=== PATIENT | male | born 1950 | race Caucasian/White ===

== ENCOUNTER → 2018-03-13 | Outpatient (CLI) | payer BC, MEDICARE ==
[2018-03-13 11:27] LABS: ABG BASE EXCESS -1.1 MMOL/L (-2.5-2.5); ABG OXYGEN SATURATION 96 % (94-100); ABG PCO2 36 MMHG (35-45); ABG PH 7.41 (7.37-7.43); ABG PO2 76 MMHG (79-93); ABG TCO2 23.9 MMOL/L (21.0-31.0)
[2018-03-13 11:28] LABS: ALLENS TEST YES-POS; INSPIRED O2 ROOM AIR; PATIENT TEMP 98.3; VENTILATOR NO
--- NOTE | 2018-03-13 12:37 | Diagnostic Imaging Report ---
INDICATION: ALLERGIC RHINITIS, DYSPNEA, EDEMA, HX OF SMOKING COMPARISON: None. FINDINGS: Frontal and lateral views of the chest demonstrate normal heart size and pulmonary vascularity. The lungs are clear. There are no signs of infiltrate, pleural effusions or pneumothoraces. The visualized osseous structures show no acute abnormalities. IMPRESSION: 1. No acute process. No signs of infiltrates, effusions or pneumothoraces. Dictated by: Dictated on workstation # [id number]
== END ==
LOC: LAB 10:37
PROVIDERS: ATTEND Nurse Practitioner Family
DX: J30.9 Allergic rhinitis, unspecified (principal); R06.00 Dyspnea, unspecified; Z87.891 Personal history of nicotine dependence
CPT/HCPCS: 36600; 71046; 82805

== ENCOUNTER → 2018-03-19 | Outpatient (CLI) | payer BC, MEDICARE ==
[~2018-03-19] MED LIST: RT-ALBUTEROL SULF 2.5 MG/3 ML PRE-MIX VIAL INH ONE; RT-ALBUTEROL SULF 2.5 MG/3 ML PRE-MIX VIAL ONE
== END ==
LOC: CARD 13:10
PROVIDERS: ATTEND Nurse Practitioner Family
DX: R06.00 Dyspnea, unspecified (principal); E66.9 Obesity, unspecified; Z87.891 Personal history of nicotine dependence
CPT/HCPCS: 93306

== ENCOUNTER 2018-04-11 13:00 | Outpatient (CLI) | payer BC, MEDICARE | END 2018-04-11 13:18 | disposition home or self-care (01) | LOC: SLEEP 13:00 | PROVIDERS: ATTEND Nurse Practitioner Family | DX: G47.10 Hypersomnia, unspecified (principal) ==

== ENCOUNTER → 2019-09-12 | Outpatient (CLI) | payer BC, MEDICARE | LOC: LAB FS 15:25 | PROVIDERS: ATTEND Ophthalmology | DX: J98.4 Other disorders of lung (principal) ==

== ENCOUNTER 2020-06-22 15:57 | Emergency (ER) | payer BC, MEDICARE ==
[~2020-06-22] VITALS: Ht 177.8 cm; Wt 124.6 kg
[2020-06-22 16:09] VITALS: BP 106/81
[2020-06-22 16:40] LABS: BASOPHILS % (AUTO) 1 % (0-10); EOSINOPHILS % (AUTO) 4 % (0-10); HEMATOCRIT 43 % (40-54); HEMOGLOBIN 14.7 G/DL (13.3-17.7); LYMPHOCYTES # (AUTO) 1.9 X 10^3 (1.0-4.0); LYMPHOCYTES % (AUTO) 24 % (12-44); MEAN CORPUSCULAR HEMOGLOBIN 30 PG (25-34); MEAN CORPUSCULAR HGB CONC 34 G/DL (32-36); MEAN CORPUSCULAR VOLUME 87 FL (80-99); MEAN PLATELET VOLUME 10.3 FL (7.4-10.4); MONOCYTES # (AUTO) 0.8 X 10^3 (0.0-1.0); MONOCYTES % (AUTO) 10 % (0-12); NEUTROPHILS % (AUTO) 61 % (42-75); PLATELET COUNT 202 10^3/uL (130-400); RED CELL DISTRIBUTION WIDTH 13.1 % (10.0-14.5); WHITE BLOOD COUNT 8.1 10^3/uL (4.3-11.0)
[2020-06-22 16:41] LABS: BASOPHILS # (AUTO) 0.1 10^3/uL (0.0-0.1); EOSINOPHILS # (AUTO) 0.4 10^3/uL (0.0-0.3)
--- NOTE | 2020-06-22 16:54 | ED Lower Extremity ---
General Chief Complaint: Lower Extremity Stated Complaint: SWELLING IN LEFT LEG Source: patient Exam Limitations: no limitations History of Present Illness Date Seen by Provider: Jun 22, 2020 Time Seen by Provider: 16:40 Initial Comments 70-year-old male presents from his PCPs clinic where he was seen today for lower extremity edema and intermittent exertional dyspnea. Sent for evaluation for possible DVT of LLE. Patient with chronic lower extremity edema and chronic intermittent shortness of air. States he rarely walks or exerts himself due to his shortness of air and swelling pain in his lower extremities. No SOA at rest. Denies CP or palpitations. Admits he occasionally wears compression hose and they effectively keep the swelling down in his legs. Pt states he has had significant wt gain Allergies and Home Medications Allergies Coded Allergies: No Known Drug Allergies (Unverified , 03/19/18) Patient Home Medication List Home Medication List Reviewed: Yes Review of Systems Constitutional: see HPI; No dizziness, No fever, No malaise, No weakness Respiratory: cough, dyspnea on exertion; No hemoptysis, No orthopnea, No short of breath, No stridor, No wheezing Cardiovascular: chest pain, edema (chronic LE edema); No palpitations Gastrointestinal: No abdominal pain, No constipation, No diarrhea, No loss of appetite, No nausea, No vomiting Musculoskeletal: No back pain, No joint pain, No muscle pain, No neck pain Skin: No change in color, No lesions, No lumps, No rash Psychiatric/Neurological: Numbness (b/l LE's, no pain) Past Muuzvla-Nehpnf-Ufqkgi Hx Past Med/Social Hx: Reviewed Nursing Past Med/Soc Hx Patient Social History Alcohol Use: Past History Recreational Drug Use: No Smoking Status: Former Smoker 2nd Hand Smoke Exposure: No Recent Foreign Travel: No Contact w/Someone Who Travel: No Recent Hopitalizations: No Physical Abuse: No Sexual Abuse: No Mistreated: No Fear: No Seasonal Allergies Seasonal Allergies: No Past Medical History Surgeries: Yes (bilateral knees, rt shoulder) Tonsillectomy Respiratory: No Cardiac: Yes Hypertension Neurological: No Genitourinary: No Gastrointestinal: No Musculoskeletal: No Endocrine: No HEENT: No Cancer: No Psychosocial: No Integumentary: No Blood Disorders: No Physical Exam Vital Signs Vital Signs - First Documented 06/22/20 16:09 Temp 37.2 Pulse 88 Resp 18 B/P (MAP) 106/81 (89) Pulse Ox 96 O2 Delivery Room Air Capillary Refill : Height, Weight, BMI Height: '" Weight: lbs. oz. kg; BMI Method: General Appearance: WD/WN, no apparent distress Neck: non-tender, full range of motion, supple Cardiovascular: regular rate, rhythm, no gallop, no JVD, no murmur, other (symmetrical Non-pitting edema of b/l LE's. No calf tenderness, neg Genesis's/ neg Marti's) Respiratory: chest non-tender, lungs clear, normal breath sounds, no respiratory distress, no accessory muscle use Legs: bilateral leg non-tender, bilateral leg normal inspection, bilateral leg normal range of motion, bilateral leg no evidence of injury Knees: bilateral knee non-tender, bilateral knee normal inspection, bilateral knee normal range of motion, bilateral knee no evidence of injury Ankles: bilateral ankle non-tender, bilateral ankle normal inspection, bilateral ankle normal range of motion, bilateral ankle no evidence of injury Feet: bilateral foot non-tender, bilateral foot normal inspection, bilateral foot normal range of motion, bilateral foot no evidence of injury Neurologic/Tendon: normal sensation, normal motor functions Neurologic/Psychiatric: no motor/sensory deficits, alert, normal mood/affect Progress/Results/Core Measures Results/Orders Lab Results Laboratory Tests Test 06/22/20 16:22 Range/Units White Blood Count 8.1 4.3-11.0 10^3/uL Red Blood Count 4.94 4.35-5.85 10^6/uL Hemoglobin 14.7 13.3-17.7 G/DL Hematocrit 43 40-54 % Mean Corpuscular Volume 87 80-99 FL Mean Corpuscular Hemoglobin 30 25-34 PG Mean Corpuscular Hemoglobin Concent 34 32-36 G/DL Red Cell Distribution Width 13.1 10.0-14.5 % Platelet Count 202 130-400 10^3/uL Mean Platelet Volume 10.3 7.4-10.4 FL Neutrophils (%) (Auto) 61 42-75 % Lymphocytes (%) (Auto) 24 12-44 % Monocytes (%) (Auto) 10 0-12 % Eosinophils (%) (Auto) 4 0-10 % Basophils (%) (Auto) 1 0-10 % Neutrophils # (Auto) 5.0 1.8-7.8 X 10^3 Lymphocytes # (Auto) 1.9 1.0-4.0 X 10^3 Monocytes # (Auto) 0.8 0.0-1.0 X 10^3 Eosinophils # (Auto) 0.4 H 0.0-0.3 10^3/uL Basophils # (Auto) 0.1 0.0-0.1 10^3/uL D-Dimer 0.39 0.00-0.49 UG/ML Pro-B-Type Natriuretic Peptide 58.9 <75.0 PG/ML My Orders Orders - EDGAR LEON DO Cbc With Automated Diff (06/22/20 16:17) Probnp Fs (06/22/20 16:17) Fibrin Degradation Products (06/22/20 16:19) Vital Signs/I&O 06/22/20 16:09 Temp 37.2 Pulse 88 Resp 18 B/P (MAP) 106/81 (89) Pulse Ox 96 O2 Delivery Room Air Initial ECG Impression Date: Jun 22, 2020 Initial ECG Impression Time: 17:00 Initial ECG Rate: 75 Initial ECG Rhythm: Normal Sinus Initial ECG Intervals: Normal Initial ECG Impression: Normal Initial ECG Comparisson: No Previous ECG Available Comment Review of ECG done by PCP in clinic today. no sign of heart strain Departure Impression Primary Impression: Dependent edema Disposition: 01 HOME, SELF-CARE Condition: Stable Departure-Patient Inst. Decision time for Depature: 17:07 Referrals: JORDIN MOHAMUD DO (PCP/Family) Primary Care Physician Patient Instructions: Dependent Edema (DC) Add. Discharge Instructions: Talk to your PCP, Dr Mohamud about seeing a [employer] for help with weight loss. Also discuss starting an exercise program with Dr Mohamud to increase your exercise tolerance. All discharge instructions reviewed with patient and/or family. Voiced understanding. EDGAR LEON DO Jun 22, 2020 16:54
== END 2020-06-22 17:12 | disposition home or self-care (01) ==
LOC: EDUNIT# 15:57 → ER FS 15:58
DX: R60.0 Localized edema (principal); Z87.891 Personal history of nicotine dependence
CPT/HCPCS: 36415; 83880; 85025; 85379; 99283

== ENCOUNTER → 2021-01-13 | Outpatient (CLI) | payer BC, MEDICARE | LOC: LABNPT 05:54 | PROVIDERS: ATTEND Nurse Practitioner Family | DX: Z01.89 Encounter for other specified special examinations (principal); Z20.822 Contact with and (suspected) exposure to COVID-19 | CPT/HCPCS: 87635 ==

== ENCOUNTER 2021-01-15 20:23 | Outpatient (CLI) | payer BC, MEDICARE | END 2021-01-16 07:05 | disposition home or self-care (01) | LOC: SLEEP 20:23 | PROVIDERS: ATTEND Nurse Practitioner Family | DX: G47.33 Obstructive sleep apnea (adult) (pediatric) (principal) | CPT/HCPCS: 95811 ==

== ENCOUNTER → 2021-02-10 | Outpatient (CLI) | payer BC, MEDICARE ==
[~2021-02-10] MED LIST changes: +CATHETER FLUSH 10 ML SYR IV PRN; +HOLD METFORMIN - RECEIVED CONTRAST 20 ML VIAL IV SCH; +IOHEXOL 350 MG/ML 100 ML (OMNIPAQUE 350) VIAL IV ONE; +NS 100 ML (IVPB) BAG IV ONE; -RT-ALBUTEROL SULF 2.5 MG/3 ML PRE-MIX VIAL ONE
[2021-02-10 15:42] LABS: CREATININE SERUM 0.86 MG/DL (0.60-1.30); GFR ESTIMATED > 60
[2021-02-10 15:43] LABS: BUN/CREATININE RATIO 13
--- NOTE | 2021-02-10 17:04 | Diagnostic Imaging Report ---
EXAMINATION: CT Chest with intravenous contrast. TECHNIQUE: Multiple contiguous axial images were obtained through the chest after the uneventful administration of intravenous contrast. All CT scans use one or more of the following dose optimizing techniques: automated exposure control, MA and/or KvP adjustment based on a patient size and exam type, or iterative reconstruction. HISTORY: ASTHMA COMPARISON: None available. FINDINGS: Thyroid: The thyroid is normal. Mediastinum: Heart size is normal without significant pericardial effusion. Calcifications of the aorta and coronary vessels. Thoracic aorta is normal in caliber. There are numerous prominent mediastinal lymph nodes which are not pathologically enlarged but are greater in number than expected. Lungs and airways: There are mild background emphysematous changes of the lungs without consolidation, pleural effusion, or pneumothorax. There is no suspicious pulmonary nodule. The airways are normal. Upper abdomen: There is a cystic lesion within hepatic segment IVb likely hepatic cyst. Musculoskeletal: Degenerative changes of the spine without suspicious osseous lesion or compression fracture. IMPRESSION: 1. No acute abnormality in the chest. 2. Mild emphysema. 3. Multiple prominent mediastinal lymph nodes are not pathologically enlarged but are greater in number than expected. These are indeterminate and may be reactive, although lymphoma could have a similar appearance. Dictated by: Dictated on workstation # [id number]
== END ==
LOC: RT 15:08
PROVIDERS: ATTEND Nurse Practitioner Family
DX: J43.9 Emphysema, unspecified (principal); J45.909 Unspecified asthma, uncomplicated
CPT/HCPCS: 36415; 71260; 82565; 84520; 94060; 94726; 94729

== ENCOUNTER → 2021-08-09 | Outpatient (CLI) | payer BC, MEDICARE ==
[2021-08-09 14:35] LABS: CREATININE SERUM 3.23 MG/DL (0.60-1.30)
--- NOTE | 2021-08-09 17:51 | Diagnostic Imaging Report ---
INDICATION: Adenopathy. TECHNIQUE: Multiple contiguous axial images were obtained through the chest without the use of intravenous contrast. Auto Exposure Controls were utilized during the CT exam to meet ALARA standards for radiation dose reduction. CT chest is compared to previous study of 02/10/2021. FINDINGS: Multiple small mediastinal nodes are again noted which appear to be unchanged compared to the prior study. A subcarinal node measures about 11 mm in short axis diameter by 2.7 cm. This is unchanged compared to the previous study. A few smaller nodes in the mediastinum are present which are of not pathologic size. There are no appreciably enlarged hilar nodes or axillary nodes. There is no pleural or pericardial fluid. There are coronary calcifications present. Lung parenchymal windows demonstrated mild emphysematous changes but no acute consolidation or pulmonary parenchymal mass. Visualized portions of the upper abdomen demonstrate diffuse fatty infiltration of the liver. No adenopathy is seen in the upper abdomen. There is a benign-appearing cyst in the liver which is unchanged. IMPRESSION: Compared to the prior study of 02/10/2021, the mediastinum appears unchanged. The patient does have multiple mildly prominent lymph nodes which are of not pathologic size and are stable compared to 02/10/2021. There are mild emphysematous changes without focal acute pulmonary parenchymal lesion. No adenopathy is seen elsewhere. There is fatty infiltration of the liver with unchanged hepatic cyst. Dictated on workstation # [id number]
== END ==
LOC: RAD 14:15
PROVIDERS: ATTEND Nurse Practitioner Family
DX: J43.9 Emphysema, unspecified (principal); K76.0 Fatty (change of) liver, not elsewhere classified; R59.9 Enlarged lymph nodes, unspecified
CPT/HCPCS: 36415; 71250; 82565; 84520